=== PATIENT | male | born 1950 | race Caucasian/White ===

== ENCOUNTER 2020-06-07 12:51 | Outpatient (CLI) | payer MEDICARE, BC ==
[~2020-06-07 12:51] MED LIST: ASPI-611 PO; CLOP75TA34 PO; DOCU-20 PO; DUTA0.5C40 PO; GABA-532 PO; HYDR-4383 PO; LORA1TAB PO; LOSA100T57 PO; PANT-47 PO; ROSU20TA2 PO; SERT100T PO; barium sulfate 450ml oral suspension ONE
== END 2020-06-07 23:59 | disposition home or self-care (01) ==
LOC: RAD 12:51
PROVIDERS: ATTEND Nurse Practitioner Family
DX: R13.12 Dysphagia, oropharyngeal phase (principal); I69.391 Dysphagia following cerebral infarction; I69.322 Dysarthria following cerebral infarction
CPT/HCPCS: 74230